=== PATIENT | male | born 1950 | race African-American/Black ===

== ENCOUNTER 2017-06-10 21:04 | Inpatient (IN) | payer MEDICARE, OTHER ==
[~2017-06-10] VITALS: Ht 180.3 cm; Wt 103.0 kg
[2017-06-10] MEDS ORDERED: MAGNESIUM/ALUMINUM HYDROXIDE/SIMETHICONE 30ML UDC PO ONE (23:00)
[2017-06-10] MEDS ORDERED: NITROGLYCERIN 0.4MG TABLET SL SL PRN (23:00)
[2017-06-10] MEDS ORDERED: LABETALOL HCL 20MG/4ML CARPUJECT IV ONE (23:00)
[2017-06-10] MEDS ORDERED: VISCOUS LIDOCAINE 2% 15 ML UDC PO ONE (23:00)
[2017-06-10] MEDS ORDERED: ASPIRIN 81MG TABLET PO ONE (23:00)
[2017-06-10] MEDS ORDERED: INSULIN REGULAR HUMAN 100 UNITS/ML 10ML VIAL IV ONE (23:15)
[2017-06-10 23:28] LABS: HEMATOCRIT. 38.5 % (42.0-52.0); HEMOGLOBIN. 12.5 g/dL (14.0-18.0); MEAN CORPUSCULAR HEMOGLOBIN 27.1 pg (28.0-32.0); MEAN CORPUSCULAR VOLUME 83.6 fL (80.0-94.0); MEAN PLATELET VOLUME 7.9 fl (7.4-10.4); PLATELET 294 x1000/uL (130-400); RED BLOOD CELL COUNT 4.61 mill/uL (4.7-6.1); RED CELL DISTRIBUTION WIDTH 17.3 % (11.6-14.6)
[2017-06-10 23:39] LABS: D-DIMER 0.63 mg/L FEU (<0.50); INR 1.1; PARTIAL THROMBOPLASTIN TIME 28.7 sec (24.0-34.0); PROTHROMBIN TIME 11.2 sec
[2017-06-10 23:44] LABS: CARBON DIOXIDE 28 mEq/L (21-32); CHLORIDE 105 mEq/L (98-107); ETHANOL BLOOD < 10 mg/dL; TROPONIN I 0.09 ng/mL (0.00-0.04)
[2017-06-10] MEDS ORDERED: FUROSEMIDE 40MG/4ML VIAL IVP ONE (23:45)
[2017-06-10] MEDS ORDERED: LABETALOL 5MG/ML SYR 20 MG/4 ML SYRINGE IV NR ×2 (23:45)
[2017-06-11 02:57] LABS: PLATELET ESTIMATE NORMAL
[2017-06-11 08:00] VITALS: BP 142/104
[2017-06-11 08:53] VITALS: BP 142/104
[2017-06-11] MEDS ORDERED: HYDROCODONE/ACETAMINOPHEN 5/325MG TABLET PO PRN (11:30)
[2017-06-11] MEDS ORDERED: IPRATROPIUM/ALBUTEROL 0.5-3(2.5)MG/3ML NEB INH PRN (11:30)
[2017-06-11] MEDS ORDERED: MAGNESIUM/ALUMINUM HYDROXIDE/SIMETHICONE 30ML UDC PO PRN (11:30)
[2017-06-11] MEDS ORDERED: FUROSEMIDE 40MG/4ML VIAL IV SCH (11:30)
[2017-06-11] MEDS ORDERED: PNEUMOCOCCAL 23-VAL P-SAC VAC 0.5 ML IM ONE (11:30)
[2017-06-11] MEDS ORDERED: ACETAMINOPHEN 325MG TABLET PO PRN (11:30)
[2017-06-11] MEDS ORDERED: ONDANSETRON HCL 4MG/2ML VIAL IV PRN (11:30)
[2017-06-11 12:00] VITALS: BP 152/94
[2017-06-11] MEDS: ENOXAPARIN 30MG/0.3ML SYR SUBCUT SCH ×2 (13:27→21:16)
[2017-06-11] MEDS: CLONIDINE 0.1MG TABLET PO PRN (13:28)
[2017-06-11] MEDS: FUROSEMIDE 40MG/4ML VIAL IV SCH (15:42)
[2017-06-11 15:50] VITALS: BP 120/79
[2017-06-11 17:43] LABS: CREATINE KINASE MB FRACTION 2.6 ng/mL (0.5-3.6); TROPONIN I 0.06 ng/mL (0.00-0.04)
[2017-06-11 20:00] VITALS: BP 153/88
[2017-06-11] MEDS: CARVEDILOL 6.25 MG TABLET PO SCH (21:17)
[2017-06-12] VITALS: BP 139/89
[2017-06-12 00:20] LABS: TROPONIN I 0.04 ng/mL (0.00-0.04)
[2017-06-12 04:00] VITALS: BP 156/103
[2017-06-12] MEDS: CLONIDINE 0.1MG TABLET PO PRN (06:33)
[2017-06-12 07:22] LABS: HEMATOCRIT. 38.8 % (42.0-52.0); HEMOGLOBIN. 12.8 g/dL (14.0-18.0); MEAN CORPUSCULAR HEMOGLOBIN 27.7 pg (28.0-32.0); MEAN CORPUSCULAR VOLUME 83.7 fL (80.0-94.0); MEAN PLATELET VOLUME 8.7 fl (7.4-10.4); PLATELET 303 x1000/uL (130-400); RED BLOOD CELL COUNT 4.64 mill/uL (4.7-6.1); RED CELL DISTRIBUTION WIDTH 16.9 % (11.6-14.6)
[2017-06-12 07:29] LABS: CHLORIDE 103 mEq/L (98-107)
[2017-06-12 07:57] LABS: CARBON DIOXIDE 26 mEq/L (21-32); HDL CHOLESTEROL 68 mg/dL (40-59); LDL CHOLESTEROL 68 mg/dL (5-100); TROPONIN I 0.04 ng/mL (0.00-0.04)
[2017-06-12 08:00] VITALS: BP 154/99
[2017-06-12] MEDS ORDERED: ASPIRIN 81MG EC TABLET PO SCH (09:00)
[2017-06-12] MEDS ORDERED: AMLODIPINE 10MG TABLET PO SCH (09:00)
[2017-06-12] MEDS: FUROSEMIDE 40MG/4ML VIAL IV SCH (09:52)
[2017-06-12] MEDS: CARVEDILOL 6.25 MG TABLET PO SCH (09:52)
[2017-06-12] MEDS: ENOXAPARIN 30MG/0.3ML SYR SUBCUT SCH (09:53)
[2017-06-12 12:00] VITALS: BP 126/89
[2017-06-12 15:20] VITALS: BP 136/87
[2017-06-12] MEDS ORDERED: FUROSEMIDE 40MG TABLET PO SCH (17:00)
[2017-06-12 17:35] LABS: PLATELET ESTIMATE NORMAL
== END 2017-06-12 17:25 | disposition home or self-care (01) | DRG 304 ==
LOC: ER 21:12 → 6WST 06-11 00:31 → EDBEDREQ 06-11 00:35 → ENRESERV 06-11 04:52
PROVIDERS: ADMIT Hospitalist; ATTEND Hospitalist
DX: I16.0 Hypertensive urgency (principal); I50.23 Acute on chronic systolic (congestive) heart failure; I42.0 Dilated cardiomyopathy; I11.0 Hypertensive heart disease with heart failure; J44.9 Chronic obstructive pulmonary disease, unspecified; Z82.49 Family history of ischemic heart disease and other diseases of the circulatory system; Z87.891 Personal history of nicotine dependence; Z91.19 Patient's noncompliance with other medical treatment and regimen; Z79.899 Other long term (current) drug therapy
CPT/HCPCS: 36415; 71010; 80053; 80061; 82550; 82553; 83690; 83880; 84484; 85025; 85379; 85610; 85730; 93005; 93970; 96374; 96375; 96376; 97162; 99291; G0482; J1650; J1815; J1940; J3490

== ENCOUNTER 2017-11-27 07:19 | Inpatient (IN) | payer MEDICARE, OTHER ==
[~2017-11-27] VITALS: Ht 185.4 cm; Wt 100.0 kg
[2017-11-27 10:18] LABS: BASOPHILS % 1.7 % (0.0-2.0); EOSINOPHILS % 13.1 % (0.0-5.0); HEMATOCRIT. 36.4 % (42.0-52.0); HEMOGLOBIN. 11.8 g/dL (14.0-18.0); LYMPHOCYTES % 32.5 % (20.0-50.0); MEAN CORPUSCULAR HEMOGLOBIN 28.3 pg (28.0-32.0); MEAN PLATELET VOLUME 7.6 fl (7.4-10.4); MONOCYTES % 11.8 % (2.0-8.0); NEUTROPHILS % 40.9 % (40.0-76.0); PLATELET 570 x1000/uL (130-400); RED BLOOD CELL COUNT 4.18 mill/uL (4.7-6.1); RED CELL DISTRIBUTION WIDTH 15.2 % (11.6-14.6)
[2017-11-27 10:31] LABS: INR 1.1; PARTIAL THROMBOPLASTIN TIME 25.3 sec (23.4-31.0); PROTHROMBIN TIME 11.3 sec (9.4-11.6)
[2017-11-27] MEDS ORDERED: ASPI-1159 PO (10:50)
[2017-11-27] MEDS ORDERED: POTA20TA82 PO (10:50)
[2017-11-27] MEDS ORDERED: SACU1TAB PO (10:50)
[2017-11-27] MEDS ORDERED: AMLO10TA4 PO (10:50)
[2017-11-27] MEDS ORDERED: CARV6.2548 PO (10:50)
[2017-11-27] MEDS ORDERED: FURO40TA5 PO (10:50)
[2017-11-27] MEDS ORDERED: GENTAMICIN SULF 40MG/ML 2ML VIAL ONE (11:23)
[2017-11-27] MEDS ORDERED: LIDOCAINE HCL 1% 20ML VIAL (Pyxis) INJ ONE (11:24)
[2017-11-27] MEDS ORDERED: IODIXANOL 320MG/ML 100 ML BOTTLE IV ONE (11:24)
[2017-11-27] MEDS ORDERED: MIDAZOLAM HCL 5 MG/5 ML VIAL ONE ×3 (11:33→13:08)
[2017-11-27] MEDS ORDERED: HYDROMORPHONE HCL/PF 2MG/ML (OR) ONE (11:33)
[2017-11-27] MEDS ORDERED: CEFAZOLIN SODIUM 1000MG/VIAL ONE (11:34)
[2017-11-27] MEDS ORDERED: HYDROMORPHONE HCL/PF 2MG/ML CPJ IV PRN (12:30)
[2017-11-27] MEDS ORDERED: MEPERIDINE HCL/PF 25MG/ML CPJ IV PRN (12:30)
[2017-11-27] MEDS ORDERED: LABETALOL HCL 5MG/ML VIAL 20ML IV PRN (12:30)
[2017-11-27] MEDS ORDERED: ONDANSETRON HCL 4MG/2ML INJ IV PRN (12:30)
[2017-11-27] MEDS ORDERED: FLUMAZENIL 0.1 MG/ML 5ML VIAL IV ONE (13:41)
[2017-11-27] MEDS ORDERED: HYDROCODONE/ACETAMINOPHEN 5/325MG TABLET PO PRN (13:45)
[2017-11-27 15:33] VITALS: BP 133/87
[2017-11-27 16:00] VITALS: BP 105/66
[2017-11-27 17:03] VITALS: BP 125/76
[2017-11-27] MEDS: FUROSEMIDE 40MG TABLET PO SCH (17:24)
[2017-11-27 18:00] VITALS: BP 121/79
[2017-11-27 20:00] VITALS: BP 114/75
[2017-11-27] MEDS: CARVEDILOL 6.25 MG TABLET PO SCH (21:33)
[2017-11-27 22:01] VITALS: BP 120/81
[2017-11-28] VITALS (12 sets, daily range): BP systolic 107–150; BP diastolic 36–95
[2017-11-28 06:48] LABS: BASOPHILS % 0.9 % (0.0-2.0); EOSINOPHILS % 6.9 % (0.0-5.0); HEMATOCRIT. 35.4 % (42.0-52.0); HEMOGLOBIN. 11.4 g/dL (14.0-18.0); LYMPHOCYTES % 17.4 % (20.0-50.0); MEAN CORPUSCULAR HEMOGLOBIN 27.9 pg (28.0-32.0); MEAN CORPUSCULAR VOLUME 86.7 fL (80.0-94.0); MONOCYTES % 12.2 % (2.0-8.0); NEUTROPHILS % 62.6 % (40.0-76.0); PLATELET 505 x1000/uL (130-400); RED BLOOD CELL COUNT 4.08 mill/uL (4.7-6.1); RED CELL DISTRIBUTION WIDTH 14.5 % (11.6-14.6)
[2017-11-28] MEDS: FUROSEMIDE 40MG TABLET PO SCH (08:23)
[2017-11-28] MEDS: CARVEDILOL 6.25 MG TABLET PO SCH (08:26)
[2017-11-28] MEDS ORDERED: POTASSIUM CHLORIDE 20MEQ TABLET SR PO SCH (09:00)
[2017-11-28] MEDS ORDERED: ASPIRIN 81MG EC TABLET PO SCH (09:00)
[2017-11-28] MEDS ORDERED: AMLODIPINE 10MG TABLET PO SCH (09:00)
== END 2017-11-28 17:05 | disposition home or self-care (01) | DRG 224 ==
LOC: CCL 07:19 → 3WST 07:20
PROVIDERS: ADMIT Internal Medicine Clinical Cardiac Electrophysiology; ATTEND Internal Medicine Clinical Cardiac Electrophysiology
PROC: 0JH608Z Insertion of Defibrillator Generator into Chest Subcutaneous Tissue and Fascia, Open Approach (ICD-10-PCS; principal; 2017-11-27)
PROC: 02HK3KZ Insertion of Defibrillator Lead into Right Ventricle, Percutaneous Approach (ICD-10-PCS; 2017-11-27)
PROC: 02H63KZ Insertion of Defibrillator Lead into Right Atrium, Percutaneous Approach (ICD-10-PCS; 2017-11-27)
PROC: 4A023N6 Measurement of Cardiac Sampling and Pressure, Right Heart, Percutaneous Approach (ICD-10-PCS; 2017-11-27)
PROC: B2141ZZ Fluoroscopy of Right Heart using Low Osmolar Contrast (ICD-10-PCS; 2017-11-27)
DX: I48.91 Unspecified atrial fibrillation (principal); I50.21 Acute systolic (congestive) heart failure; I25.5 Ischemic cardiomyopathy; J44.9 Chronic obstructive pulmonary disease, unspecified; I47.1 Supraventricular tachycardia; I11.0 Hypertensive heart disease with heart failure; I49.3 Ventricular premature depolarization; E66.9 Obesity, unspecified; Z79.82 Long term (current) use of aspirin; Z79.899 Other long term (current) drug therapy; Z87.891 Personal history of nicotine dependence; Z91.19 Patient's noncompliance with other medical treatment and regimen; Z68.29 Body mass index [BMI] 29.0-29.9, adult
CPT/HCPCS: 33249; 36415; 71045; 75820; 80048; 93005; 93641; C1721; C1892; C1893; C1898; C1899; J0690; J1170; J1580; J1644; J2250; J3490; J7040; Q9967

== ENCOUNTER 2018-09-29 15:01 | Inpatient (IN) | payer MEDICARE, OTHER ==
[~2018-09-29] VITALS: Ht 208.3 cm; Wt 94.8 kg
[~2018-09-29 15:01] MED LIST: AMLO10TA4 PO; ASPI-1159 PO; CARV6.2548 PO; FURO40TA5 PO; POTA20TA82 PO; SACU1TAB PO
[2018-09-29] MEDS ORDERED: HYDROCODONE/ACETAMINOPHEN 5/325MG TABLET PO STA (16:49)
[2018-09-29] MEDS ORDERED: AMLODIPINE 10MG TABLET PO ONE (17:30)
[2018-09-29] MEDS ORDERED: CARVEDILOL 6.25 MG TABLET PO ONE (17:30)
[2018-09-29 17:47] LABS: EOSINOPHILS % 6.8 % (0.0-5.0); HEMATOCRIT. 44.2 % (42.0-52.0); HEMOGLOBIN. 14.6 g/dL (14.0-18.0); LYMPHOCYTES % 28.6 % (20.0-50.0); MEAN CORPUSCULAR HEMOGLOBIN 29.4 pg (28.0-32.0); MEAN CORPUSCULAR VOLUME 88.9 fL (80.0-94.0); MEAN PLATELET VOLUME 6.7 fl (7.4-10.4); MONOCYTES % 6.4 % (2.0-8.0); NEUTROPHILS % 55.2 % (40.0-76.0); PLATELET 365 x1000/uL (130-400); RED BLOOD CELL COUNT 4.97 mill/uL (4.7-6.1); RED CELL DISTRIBUTION WIDTH 17.5 % (11.6-14.6)
[2018-09-29 17:52] LABS: CHLORIDE 107 mEq/L (98-107)
[2018-09-29 17:53] LABS: INR 1.1; PROTHROMBIN TIME 10.6 sec (9.1-11.1)
[2018-09-29 18:04] LABS: CLARITY URINE CLEAR (CLEAR); COLOR URINE YELLOW (YELLOW); KETONES URINE NEGATIVE (NEGATIVE); LEUKOCYTE ESTERASE URINE NEGATIVE (NEGATIVE); NITRITE URINE NEGATIVE (NEGATIVE); OCCULT BLOOD URINE NEGATIVE (NEGATIVE); PROTEIN URINE NEGATIVE (NEGATIVE); SPECIFIC GRAVITY URINE 1.005 (1.005-1.030); UROBILINOGEN URINE 0.2 E.U./dL (0.2-1.0)
[2018-09-29 23:06] VITALS: BP 159/91
[2018-09-29 23:30] VITALS: BP 159/91
[2018-09-30] MEDS ORDERED: HYDROCODONE/ACETAMINOPHEN 5/325MG TABLET PO PRN (00:30)
[2018-09-30 04:00] VITALS: BP 152/80
[2018-09-30 08:01] VITALS: BP 140/74
[2018-09-30] MEDS ORDERED: FUROSEMIDE 40MG TABLET PO SCH (09:00)
[2018-09-30] MEDS ORDERED: ASPIRIN 81MG TABLET PO SCH (09:00)
[2018-09-30] MEDS ORDERED: DOCUSATE SODIUM 100MG CAPSULE PO SCH (09:00)
[2018-09-30] MEDS ORDERED: POTASSIUM CHLORIDE 20MEQ TABLET SR PO SCH (09:00)
[2018-09-30] MEDS ORDERED: CARVEDILOL 6.25 MG TABLET PO SCH (09:00)
[2018-09-30] MEDS ORDERED: AMLODIPINE 10MG TABLET PO SCH (09:00)
[2018-09-30] MEDS ORDERED: INFLUENZA VIRUS VACCINE(AFLURIA) 0.5ML SYR IM ONE (10:00)
[2018-09-30 12:00] VITALS: BP 139/92
== END 2018-09-30 13:00 | disposition home or self-care (01) | DRG 554 ==
LOC: ER 15:13 → 8WST 21:32 → ENRESERV 22:19
PROVIDERS: ADMIT Internal Medicine; ATTEND Internal Medicine
DX: M17.0 Bilateral primary osteoarthritis of knee (principal); E44.1 Mild protein-calorie malnutrition; I50.22 Chronic systolic (congestive) heart failure; I42.9 Cardiomyopathy, unspecified; I11.0 Hypertensive heart disease with heart failure; J45.909 Unspecified asthma, uncomplicated; W18.30XA Fall on same level, unspecified, initial encounter; Z79.82 Long term (current) use of aspirin; Z79.899 Other long term (current) drug therapy; Y93.89 Activity, other specified; Y92.091 Bathroom in other non-institutional residence as the place of occurrence of the external cause; Y99.8 Other external cause status; Z95.810 Presence of automatic (implantable) cardiac defibrillator; Z68.21 Body mass index [BMI] 21.0-21.9, adult
CPT/HCPCS: 36415; 73521; 73562; 83880; 90686; 93005; 93306; 93880; 97162; 99285; L1830